=== PATIENT | male | born 1935 | race Caucasian/White ===

== ENCOUNTER 2020-08-04 21:01 | Emergency (ER) | payer MEDICARE, OTHER, SELFPAY ==
[2020-08-04 21:04] VITALS: BP 183/76; PULSE 61; RESP 20; TEMP 36.6; O2SAT 95; BMI 32.5
--- NOTE | 2020-08-04 21:14 | CT_ITS ---
HISTORY: RIGHT POSTERIOR LOWER RIB PAIN AND REDNESS DUE TO FALL TODAY DOWN 4-5 STEPS. TECHNIQUE: Helically acquired images were obtained of the chest. A radiation dose optimization technique was used for this scan. IV Contrast dosage and agent: None. COMPARISON: Chest x-ray is from December 17, 2016. Abdominal x-ray is from November 11, 2014. FINDINGS: # of images incl. paperwork: [id number] LUNGS AND LARGE AIRWAYS: Benign angular pleural parenchymal nodule extending inferiorly from the minor fissure into the right middle lobe measures 7 mm in long axis dimensions. Bronchiectasis. Bronchial wall thickening. Right middle lobe and left lower lobe linear airspace disease likely representing scarring and/or atelectasis. As there appears to be disease within the lungs within these locations on the previous study from 2016, Small bulla within the left upper lobe. Overall pulmonary hyperexpansion. A small bulla in the medial aspect of the right lower lobe. PLEURA: No pleural effusions. Minimal pleural thickening dependently BONES: Kyphoscoliosis. Multilevel degenerative disc disease. Many Schmorl's node invaginations. Some facet arthropathy. Degenerative disc disease is greatest within the lower cervical spine and within the thoracic spine. Right posterior seventh through 11th acute rib fractures. Benign bone island within the right posterior ninth rib. HEART AND PERICARDIUM: Heart is nonenlarged. Coronary artery calcific ASCVD. VESSELS: Elongation of the thoracic aorta with calcific plaque, but without aneurysm MEDIASTINUM AND BERE: Mediastinal lymph nodes, but these are not pathologic by size number or appearance. Small hiatal hernia SOFT TISSUES: Included thyroid gland is unremarkable. There is no axillary, supraclavicular or lower cervical adenopathy. UPPER ABDOMEN: Hypodense mass exophytic to the right kidney and a parapelvic space of the right kidney are likely benign cysts. Some renal atrophy. Severe atherosclerosis of the abdominal aorta. Interposition of the hepatic flexure of colon anterior to and above the liver adjacent to the diaphragm. This is symptomatic, this has been termed Chilaiditi syndrome. No pneumothorax. CT/Chest without Contrast IMPRESSION: Right posterior seventh through 11th acute rib fractures with adjacent airspace disease that is somewhat linear within the right lower lobe. Although I believe there is some chronic disease within this location such as chronic bronchitis and early emphysema, there is likely some additional atelectasis. A pulmonary contusion is within the differential. No pneumothorax. Individualized dose optimization techniques were used for this CT. at 2250 Reported and signed by: Emil Benton MD Electronically Signed: Emil Benton MD at 22:49 EST Tel , Service support ,
--- NOTE | 2020-08-04 21:17 | ED.DCSUM_ITS ---
- ER Visit Summary Date of Service: 08/04/20 Chief Complaint: Fell on icy steps injuring his right lower rib cage History of Present Illness: The patient is a 85 M with medical history of hypertension and prior appendectomy. Patient was walking down his outside steps of his home about 7 PM he slipped on the ice and went down about 4-5 steps. Says he never hit his head. No LOC. He is on no blood thinners besides aspirin. He is complaining of right mid to lower rib cage pain. Denies any hematuria since the fall. Denies any headache or neck pain. Prior to the fall he said he felt fine. He was carrying trash outside. Physical Examination: Older Male complaining of pain vital signs stable and afebrile. H EENT exam unremarkable atraumatic. Pupils round reactive light. No trauma nose face or scalp. No hematoma or bruising. Nontender. C-spine nontender. Trachea midline. Moving his neck without any pain or difficulty. Lungs clear to auscultation bilaterally. Heart regular rhythm no murmur. Anterior chest wall nontender. No crepitance. Abdomen soft nontender normal bowel sounds no peritoneal signs. Pelvic girdle intact. Back spine and left rib cage nontender. He has mild redness to his right lower posterior rib cage with tenderness. There is no crepitance or subcu air. Currently there is no bruising. Skin is intact. Lower back nontender. Patient moving all 4 extremities. Neurovascularly intact. Normal 5 out of 5 print controller strength bilaterally. Dorsi plantarflexion intact. Flexion extension of both hips is normal. There is no shortening or rotation. Dorsi plantarflexion intact. Neurologically is awake and alert with no focal motor deficits. Test Results: CAT scan of the chest without contrast I unofficial read appears to have 3 rib fractures on the right posterior ribs. I do not see any obvious injury to the liver, kidneys or spleen. I do not see any hemothorax or pneumothorax. We are of course waiting for the official radiologist interpretation. Screening labs including a CBC and chemistry are being obtained and will be checked out. Emergency Department Course and Treatment: Older male fell on icy steps concern for rib fractures versus damage to internal organs. CAT scan chest being obtained. IV morphine and Zofran being given for pain. Repeat exam at 10:30 PM patient is the one fine but he is having significant right lower posterior rib cage pain consistent with a fall and fractures. He is stable. He was given a second dose of morphine IV. He had I discussed treatment options and he is agreeable to hospitalization overnight for pain control and further evaluation. Treatment Plan: Awaiting formal CT read and screening labs. The hospitalist on page for admission. The labs and formal read of CT OB obtained prior to co mpleting the admission. Disposition: Admission Impression: Acute fall on icy steps Acute right posterior rib rib fractures x3 Intractable pain This note was generated with [employer] dictation software. It may contain incorrect words, spelling, and punctuation that were not noted in review of the chart prior to signing ED Disposition - Plan for ED Patient: Referrals: Shandra Prado MD [Primary Care Provider] -
[2020-08-04] MEDS: Ondansetron 4 MG/2 ML Vial IV (21:47)
[2020-08-04] MEDS: morphine 8 MG/ML Syringe 6 MG IV ×2 (21:47→22:38)
[2020-08-04 22:41] VITALS: BP 143/86; PULSE 56; RESP 16; TEMP 36.1; O2SAT 92
[2020-08-04 22:57] LABS: Absolute Lymphocyte Count 1.01 X10^3/uL (0.83-4.51); Absolute Neutrophil Count 11.3 X10^3/uL (2.0-7.7); Basophil# 0.03 X10^3/uL; Basophil% 0.2 % (0-1); Eosinophil# 0.04 X10^3/uL; Eosinophils% 0.3 % (0-5); Hematocrit 46.6 % (40-54); Lymphocyte # 1.01 X10^3/ul (4.0); Lymphocyte % 7.5 % (19-41); Mean Corp Hgb Conc 32.2 g/dL (32-36); Mean Corpuscular Hgb 30.4 pg (27.0-32.0); Mean Corpuscular Volume 94.3 fL (80-94); Mean Platelet Vol. 10.1 fl (6.2-12.0); Monocyte# 0.99 X10^3/uL; Monocyte% 7.4 % (0-10); NRBC Flagged by Analyzer 0 % (0-5); Neutrophil # 11.28 X10^3/uL (2.7-7.7); Neutrophil % 84.2 % (47-70); Platelet Count 165 K/mm3 (150-450); RBC Distribution Width CV 13.3 % (11.6-14.6); RBC Distribution Width SD 45.3 fl (35.1-43.9); Red Blood Count 4.94 M/mm3 (4.6-6.2); White Blood Count 13.4 K/mm3 (4.4-11.0)
--- NOTE | 2020-08-04 23:05 | PCM.HP.STD ---
Problem List (1) Multiple rib fractures Status: Acute (2) Carotid artery disease Status: Chronic (3) H/O: CVA (cerebrovascular accident) Status: Chronic (4) Enlarged prostate Status: Chronic (5) HTN (hypertension) Status: Chronic (6) Syncope and collapse Status: Inactive History of Present Illness Date of Admission: 08/04/20 Chief Complaint: fall with pain The patient is a 85 year old M with a significant history of HTN; BPH and carotid artery disease who presented to the ED with a fall on the same day of presentation. While clearing ice on the stairs he fell from 5 stairs and landed on his right back. He reports excruciating pain at his right back. The pain at his right back increases when he coughs; take a deep breath or turn in a particular way. He describes his pain as jabbing. The pain is better if he does not turn; cough or take a deep breath. He fell because he slipped on ice. Past Medical History Past Medical History (Chronic Problems): Chronic Problems Carotid artery disease (Chronic) H/O: CVA (cerebrovascular accident) (Chronic) Enlarged prostate (Chronic) HTN (hypertension) (Chronic) Allergies naproxen [From Aleve] Allergy (Verified 08/04/20 21:03) Rash Home Medications: Ambulatory Orders Medication Instructions Recorded Amlodipine [Norvasc] 10 mg PO DAILY 12/17/16 Aspirin 81 mg PO DAILY 12/17/16 Finasteride [Proscar] 5 mg PO DAILY 12/17/16 Omeprazole [Prilosec] 20 mg PO DAILY 12/17/16 Terazosin HCl 5 mg PO DAILY 12/17/16 Hydrochlorothiazide 12.5 mg PO DAILY 08/04/20 Surgical History: appendectomy, - - hernia surgery, finger amputation Smoking Status: Former smoker Tobacco Use: Cigarettes - *Family History Maternal History Items: Heart Disease, - - His mother from blood poisoning Paternal History Items: Heart Disease Review of Systems Constitutional: Denies: Chills, Fever, Weight Change HEENT: Denies: Head Aches, Sinus Congestion, Sinus Drainage Cardiovascular: Denies: Chest Pain, Palpitations Respiratory: Denies: Cough, Shortness of breath at rest, Sputum production Gastrointestinal: Denies: Abdominal Pain, Nausea, Vomiting Genitourinary: Denies: Dysuria Musculoskeletal: Denies: Joint Pain, Joint Tenderness Skin: Denies: Rash, Wounds Neurological: Denies: Numbness, Tingling, Focal weakness Psychiatric: Denies: Anxiety, Depression, Homicidal Ideations, Suicidal Ideations Hematologic/ Lymphatic: Denies: Easy Bruising, Easy Bleeding VTE Information - Inpt Only VTE Present on Admission: No VTE Mechan Device Prophylaxis: SCD's VTE Pharm Prophylaxis ordered?: No - Physical Exam Vitals/I&O's: Vital Signs Temp Pulse Resp BP Pulse Ox 97.0 F L 56 L 16 143/86 H 92 08/04/20 22:41 08/04/20 22:41 08/04/20 22:41 08/04/20 22:41 08/04/20 22:41 Oxygen Delivery Method Room Air Weight: 97.3 kg Body Mass Index (BMI) 32.5 General: Alert, Oriented x3, Cooperative HEENT: Atraumatic, PERRLA, EOMI, Normocephalic Neck: Supple, No JVD, Negative Carotid Bruits Lungs: Clear to auscultation, Normal air movement Cardiovascular: Regular rate, No murmurs Abdomen: Bowel Sounds Present, Soft, Non Tender Extremities: No edema, Capillary Refill Less than 3 Seconds, Tenderness - upper to middle right back Skin: Ulcer/ Wound - Also to distal phalanges of fourth and fifth fingers. 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 Musculoskeletal: No Tenderness to Palpation of Joints or Extremities Neurological: Cranial nerves II-XII grossly intact Psych/Mental Status: Normal Affect, Appropriate Laboratory Results 08/04/20 22:40: WBC 13.4 H, RBC 4.94, Hgb 15.0, Hct 46.6, MCV 94.3 H, MCH 30.4, MCHC 32.2, RDW Std Deviation 45.3 H, RDW Coeff of [place] 13.3, Plt Count 165, MPV 10.1, Immature Gran % (Auto) 0.400, Neut % (Auto) 84.2 H, Lymph % (Auto) 7.5 L, [place] % (Auto) 7.4, Eos % (Auto) 0.3, Baso % (Auto) 0.2, Absolute Neuts (auto) 11.3 H, Absolute Lymphs (auto) 1.01, Nucleated RBC % 0 02/06/21 22:40: Sodium Pending, Potassium Pending, Chloride Pending, Carbon Dioxide Pending, Anion Gap Pending, BUN Pending, Creatinine Pending, Est GFR (MDRD) Af Amer Pending, Est GFR (MDRD) Non-Af Pending, BUN/Creatinine Ratio Pending, Glucose Pending, Calcium Pending Assessment/Plan All Active Problems Multiple rib fractures (Acute) The patient is a 85 year old M with a significant history of HTN; BPH and carotid artery disease who presented to the ED with a fall on the same day of presentation and with acte fractures of right posterior 7-11th rib and probably pulmonary contusion. Multiple rib fractures with probably pulmonary contusion. Discussed with ED doc to consider transfer to a center with trauma service. ED will check with in house General Surgery or education courses sales representative to see if they will be comfortable following. PO and IV pain control discussed with patient. Incentive spirometer discussed with patient. Bowel protocol and antiemetics in the setting of initiating narcotics discussed with patient In the setting of injury hold aspirin and avoid chemical prophylaxis. Discussed ice intermittently to right upper and middle back. BPH Terazosin and finasteride continued Hypertension Blood pressure is not within goal. Likely pain contributing Amlodipine; and adequate thiazide continued GERD Prilosec continued DVT prophylaxis SCD
[2020-08-04 23:23] LABS: Anion Gap 6 (5-15); BUN 23 mg/dL (7-18); Calcium,Total 9.2 mg/dL (8.5-10.1); Chloride 109 mmol/L (98-107); Creatinine, Serum 1.53 mg/dL (0.70-1.30); EST Glomerular Filtration Rate 46 mL/min (>60); Est Glom Filt Rate - Afr Amer 56 mL/min (>60); Estimated Creatinine Clearance 35.39 ml/min; Glucose 138 mg/dL (74-106); Potassium 3.7 mmol/L (3.5-5.1); Sodium Level 141 mmol/L (136-145)
[2020-08-04 23:50] VITALS: BP 145/68; PULSE 60; RESP 18; O2SAT 94
[2020-08-05] MEDS: HYDROmorphone 1 MG/ML Syringe IV (00:01)
[2020-08-05 00:15] VITALS: BP 145/68; PULSE 62; RESP 14; TEMP 36.1; O2SAT 93
== END 2020-08-05 00:18 | disposition short-term general hospital (02) ==
LOC: ED 22:54 → MS3 23:13
PROVIDERS: Emergency Provider Emergency Medicine; PCP Internal Medicine; Visit Provider Hospitalist
DX: S22.41XA Multiple fractures of ribs, right side, initial encounter for closed fracture (principal); I10 Essential (primary) hypertension; Z79.82 Long term (current) use of aspirin; Z87.891 Personal history of nicotine dependence; W00.1XXA Fall from stairs and steps due to ice and snow, initial encounter
CPT/HCPCS: 71250; 80048; 85025; 96374; 96375; 99285; A4216; J2405